=== PATIENT | female | born 1995 | race Caucasian/White ===

== ENCOUNTER 2022-07-17 13:50 | Emergency (ER) | payer OTHER ==
[~2022-07-17] VITALS: Ht 170.2 cm; Wt 108.9 kg
[2022-07-17] MEDS ORDERED: AMOCLA875 PO (14:22)
[2022-07-17] MEDS ORDERED: HYDR1TAB94 PO (14:22)
== END 2022-07-17 14:28 | disposition home or self-care (01) ==
LOC: ER 13:50
DX: K04.7 Periapical abscess without sinus (principal); Z88.8 Allergy status to other drugs, medicaments and biological substances; Z79.899 Other long term (current) drug therapy
CPT/HCPCS: 99282